=== PATIENT | male | born 1965 | race American Indian/Alaskan Native ===

== ENCOUNTER 2017-05-31 10:15 | Emergency (ER) | payer OTHER ==
[2017-05-31] MEDS: CHLORDIAZEPOXIDE 25 MG CAP PO (11:09)
[2017-05-31] MEDS: LORAZEPAM 2 MG INJ IV (11:09)
[2017-05-31] MEDS: SOD CHLORIDE 0.9% 1,000 ML IV (11:57)
[2017-05-31] MEDS: THIAMINE 100 MG TAB PO (11:58)
[2017-05-31] MEDS: FOLIC ACID 1 MG TAB PO (11:58)
== END 2017-05-31 12:51 | disposition home or self-care (01) ==
LOC: E/R 10:15
DX: F10.230 Alcohol dependence with withdrawal, uncomplicated (principal); I10 Essential (primary) hypertension; F17.210 Nicotine dependence, cigarettes, uncomplicated; R40.2142 Coma scale, eyes open, spontaneous, at arrival to emergency department; R40.2252 Coma scale, best verbal response, oriented, at arrival to emergency department; R40.2362 Coma scale, best motor response, obeys commands, at arrival to emergency department
CPT/HCPCS: 96374; 99284-25

== ENCOUNTER 2017-07-07 17:35 | Emergency (ER) | payer SELFPAY, OTHER | END 2017-07-07 22:13 | disposition left against medical advice (07) | LOC: E/R 17:35 | DX: Z53.21 Procedure and treatment not carried out due to patient leaving prior to being seen by health care provider (principal) ==

== ENCOUNTER 2017-08-10 15:51 | Emergency (ER) | payer OTHER ==
[2017-08-10 18:42] LABS: ADD MAN DIFF? NO
[2017-08-10] MEDS: SOD CHLORIDE 0.9% 1,000 ML IV ×2 (18:43→21:20)
[2017-08-10 18:46] LABS: BASOPHIL # 0.1 10^3/ul (0.0-0.1); BASOPHILS % 1.4 % (0.0-2.0); EOSINOPHILS # 0.1 10^3/ul (0.0-0.5); EOSINOPHILS % 3.3 % (0.0-7.0); HEMATOCRIT 36.1 % (42.0-52.0); HEMOGLOBIN 12.4 g/dl (14.0-18.0); LYMPHOCYTES % 48.4 % (15.0-51.0); MEAN CORPUSCULAR HEMOGLOBIN 33.7 pg (29.0-33.0); MEAN CORPUSCULAR HGB CONC 34.3 g/dl (32.0-37.0); MEAN CORPUSCULAR VOLUME 98.1 fl (82.0-101.0); MEAN PLATELET VOLUME 8.9 fl (7.4-10.4); MONOCYTE # 0.3 10^3/ul (0.3-0.9); MONOCYTES % 8.1 % (0.0-11.0); NEUTROPHIL # 1.6 10^3/ul (1.6-7.5); NEUTROPHILS % 38.6 % (39.0-77.0); PLATELET COUNT 114 10^3/UL (140-415); RED BLOOD COUNT 3.68 10^6/ul (4.70-6.10); RED CELL DISTRIBUTION WIDTH 13.8 % (11.5-14.5)
[2017-08-10 18:46] LABS: WHITE BLOOD COUNT 4.2 10^3/ul (4.8-10.8)
[2017-08-10 19:05] LABS: ANION GAP 16 (8-16); BLOOD UREA NITROGEN 6 mg/dl (7-20); CALCIUM 8.7 mg/dl (8.4-10.2); CARBON DIOXIDE 30 mmol/L (21-31); CHLORIDE 100 mmol/L (97-110); CREATININE 0.68 mg/dl (0.61-1.24); GLUCOSE 134 mg/dl (70-220); POTASSIUM 3.4 mmol/L (3.5-5.1); SODIUM 143 mmol/L (135-144)
[2017-08-10 19:11] LABS: AMPHETAMINE/METHAMPHETAMINE Negative (NEGATIVE); BARBITURATES Negative (NEGATIVE); BENZODIAZEPINES Negative (NEGATIVE); CANNABINOIDS Negative (NEGATIVE); COCAINE Negative (NEGATIVE); OPIATES Negative (NEGATIVE)
[2017-08-10 19:14] LABS: INR 0.92; PROTIME 12.4 Sec (11.9-14.9)
[2017-08-10 19:22] LABS: TROPONIN-I < 0.012 ng/ml (0.00-0.12)
[2017-08-10] MEDS: ONDANSETRON 4 MG INJ IV (21:20)
[2017-08-10] MEDS: LORAZEPAM 1 MG TAB PO (21:20)
== END 2017-08-11 01:30 | disposition short-term general hospital (02) ==
LOC: E/R 08-11 01:30
DX: H33.002 Unspecified retinal detachment with retinal break, left eye (principal); D64.9 Anemia, unspecified; D69.6 Thrombocytopenia, unspecified; E87.6 Hypokalemia; H43.12 Vitreous hemorrhage, left eye; S09.90XA Unspecified injury of head, initial encounter; I10 Essential (primary) hypertension; F17.210 Nicotine dependence, cigarettes, uncomplicated; R51 Headache; W18.39XA Other fall on same level, initial encounter; Y92.9 Unspecified place or not applicable
CPT/HCPCS: 36415; 70450; 71045; 76536; 80048; 80306; 80307; 82962; 84484; 85025; 85610; 93005; 96374; 99285-25

== ENCOUNTER 2017-08-13 15:31 | Emergency (ER) | payer OTHER | END 2017-08-13 18:40 | disposition left against medical advice (07) | LOC: FTE 15:31 → E/R 18:40 | DX: S69.91XA Unspecified injury of right wrist, hand and finger(s), initial encounter (principal); I10 Essential (primary) hypertension; Y08.89XA Assault by other specified means, initial encounter; Z87.891 Personal history of nicotine dependence | CPT/HCPCS: 73090; 73090-RT; 73110-RT; 73130-RT; 99283-25 ==

== ENCOUNTER 2017-08-14 03:43 | Emergency (ER) | payer OTHER ==
[2017-08-14 06:32] LABS: ADD MAN DIFF? NO
[2017-08-14 06:39] LABS: BASOPHIL # 0.1 10^3/ul (0.0-0.1); BASOPHILS % 1.1 % (0.0-2.0); EOSINOPHILS # 0.3 10^3/ul (0.0-0.5); EOSINOPHILS % 5.4 % (0.0-7.0); HEMATOCRIT 36.5 % (42.0-52.0); HEMOGLOBIN 12.5 g/dl (14.0-18.0); LYMPHOCYTES # 1.8 10^3/ul (0.8-2.9); LYMPHOCYTES % 37.9 % (15.0-51.0); MEAN CORPUSCULAR HEMOGLOBIN 34.2 pg (29.0-33.0); MEAN CORPUSCULAR HGB CONC 34.2 g/dl (32.0-37.0); MEAN CORPUSCULAR VOLUME 99.7 fl (82.0-101.0); MEAN PLATELET VOLUME 9.7 fl (7.4-10.4); MONOCYTE # 0.4 10^3/ul (0.3-0.9); MONOCYTES % 9.4 % (0.0-11.0); NEUTROPHIL # 2.2 10^3/ul (1.6-7.5); PLATELET COUNT 109 10^3/UL (140-415); RED BLOOD COUNT 3.66 10^6/ul (4.70-6.10); RED CELL DISTRIBUTION WIDTH 13.7 % (11.5-14.5)
[2017-08-14 06:39] LABS: WHITE BLOOD COUNT 4.7 10^3/ul (4.8-10.8)
[2017-08-14 06:56] LABS: ALANINE AMINOTRANSFERASE 68 IU/L (13-69); ALBUMIN 4.3 g/dl (3.3-4.9); ALBUMIN/GLOBULIN RATIO 1.48; ALKALINE PHOSPHATASE 60 IU/L (42-121); ANION GAP 19 (8-16); ASPARTATE AMINO TRANSFERASE 101 IU/L (15-46); BILIRUBIN,INDIRECT 0.3 mg/dl (0-1.1); BILIRUBIN,TOTAL 0.3 mg/dl (0.2-1.3); BLOOD UREA NITROGEN 7 mg/dl (7-20); CALCIUM 8.2 mg/dl (8.4-10.2); CARBON DIOXIDE 24 mmol/L (21-31); CHLORIDE 107 mmol/L (97-110); CREATININE 0.62 mg/dl (0.61-1.24); GLUCOSE 81 mg/dl (70-220); POTASSIUM 3.8 mmol/L (3.5-5.1); SODIUM 146 mmol/L (135-144); TOTAL PROTEIN 7.2 g/dl (6.1-8.1)
[2017-08-14 06:59] LABS: ACETAMINOPHEN < 10.0 ug/ml (10.0-30.0); SALICYLATE < 1.0 mg/dl (5.0-30.0)
[2017-08-14] MEDS: DIPHTH/TET/ACEL PERTUSS (ADULT) 0.5 ML VIAL IM* (08:19)
== END 2017-08-14 08:58 | disposition home or self-care (01) ==
LOC: E/R 03:43
DX: S60.511A Abrasion of right hand, initial encounter (principal); F10.920 Alcohol use, unspecified with intoxication, uncomplicated; I10 Essential (primary) hypertension; X99.1XXA Assault by knife, initial encounter; Z23 Encounter for immunization; Z87.891 Personal history of nicotine dependence
CPT/HCPCS: 73130; 73130-RT; 80053; 80306; 85025; 90471; 90715; 99284-25

== ENCOUNTER 2017-09-01 15:45 | Emergency (ER) | payer OTHER ==
[2017-09-01] MEDS: LORAZEPAM 1 MG TAB PO (17:02)
[2017-09-01] MEDS: LIDOCAINE/MYLANTA 40 ML BTL PO (17:02)
[2017-09-01] MEDS: ACETAMINOPHEN 325 MG TAB PO (17:29)
[2017-09-01 18:18] LABS: ADD MAN DIFF? NO
[2017-09-01 18:20] LABS: WHITE BLOOD COUNT 5.6 10^3/ul (4.8-10.8)
[2017-09-01 18:20] LABS: BASOPHILS % 0.7 % (0.0-2.0); EOSINOPHILS # 0.2 10^3/ul (0.0-0.5); EOSINOPHILS % 2.7 % (0.0-7.0); HEMATOCRIT 33.3 % (42.0-52.0); HEMOGLOBIN 11.2 g/dl (14.0-18.0); MEAN CORPUSCULAR HEMOGLOBIN 33.9 pg (29.0-33.0); MEAN CORPUSCULAR HGB CONC 33.6 g/dl (32.0-37.0); MEAN CORPUSCULAR VOLUME 100.9 fl (82.0-101.0); MEAN PLATELET VOLUME 9.6 fl (7.4-10.4); MONOCYTE # 0.7 10^3/ul (0.3-0.9); MONOCYTES % 12.1 % (0.0-11.0); NEUTROPHIL # 2.7 10^3/ul (1.6-7.5); NEUTROPHILS % 48.3 % (39.0-77.0); PLATELET COUNT 119 10^3/UL (140-415); RED CELL DISTRIBUTION WIDTH 13.1 % (11.5-14.5)
[2017-09-01 18:43] LABS: ANION GAP 21 (8-16); BLOOD UREA NITROGEN 11 mg/dl (7-20); CALCIUM 8.4 mg/dl (8.4-10.2); CARBON DIOXIDE 26 mmol/L (21-31); CHLORIDE 102 mmol/L (97-110); CREATININE 0.69 mg/dl (0.61-1.24); GLUCOSE 98 mg/dl (70-220); POTASSIUM 3.8 mmol/L (3.5-5.1); SODIUM 145 mmol/L (135-144)
== END 2017-09-01 19:08 | disposition home or self-care (01) ==
LOC: E/R 15:45 → FTE 19:08
DX: R07.89 Other chest pain (principal); Z87.891 Personal history of nicotine dependence
CPT/HCPCS: 36415; 71046; 80048; 85025; 93005; 99285-25

== ENCOUNTER 2017-09-08 13:30 | Emergency (ER) | payer OTHER ==
[2017-09-08] MEDS: LORAZEPAM 2 MG INJ IV (16:45)
[2017-09-08] MEDS: SOD CHLORIDE 0.9% 1,000 ML IV (16:45)
[2017-09-08] MEDS: MAGNESIUM SULFATE 2 GM, MULTIVITAMINS 10 ML, THIAMINE 100 MG, FOLIC ACID 1 MG in SOD CH... IV (16:46)
[2017-09-08 16:59] LABS: ADD MAN DIFF? NO
[2017-09-08 17:03] LABS: WHITE BLOOD COUNT 4.5 10^3/ul (4.8-10.8)
[2017-09-08 17:03] LABS: BASOPHIL # 0.1 10^3/ul (0.0-0.1); BASOPHILS % 1.1 % (0.0-2.0); EOSINOPHILS # 0.2 10^3/ul (0.0-0.5); EOSINOPHILS % 3.5 % (0.0-7.0); HEMATOCRIT 32.8 % (42.0-52.0); HEMOGLOBIN 11.2 g/dl (14.0-18.0); LYMPHOCYTES # 1.7 10^3/ul (0.8-2.9); LYMPHOCYTES % 36.9 % (15.0-51.0); MEAN CORPUSCULAR HEMOGLOBIN 34.7 pg (29.0-33.0); MEAN CORPUSCULAR HGB CONC 34.1 g/dl (32.0-37.0); MEAN CORPUSCULAR VOLUME 101.5 fl (82.0-101.0); MONOCYTE # 0.4 10^3/ul (0.3-0.9); MONOCYTES % 9.5 % (0.0-11.0); NEUTROPHIL # 2.2 10^3/ul (1.6-7.5); NEUTROPHILS % 48.6 % (39.0-77.0); PLATELET COUNT 145 10^3/UL (140-415); RED BLOOD COUNT 3.23 10^6/ul (4.70-6.10); RED CELL DISTRIBUTION WIDTH 13.4 % (11.5-14.5)
[2017-09-08 17:08] LABS: ADD UMIC NO; UR ASCORBIC ACID NEGATIVE (NEGATIVE); UR BILIRUBIN (Dip) NEGATIVE (NEGATIVE); UR BLOOD (Dip) NEGATIVE (NEGATIVE); UR CLARITY CLEAR (CLEAR); UR COLOR YELLOW (YELLOW); UR GLUCOSE (Dip) NEGATIVE (NEGATIVE); UR KETONES (Dip) NEGATIVE (NEGATIVE); UR LEUKOCYTE ESTERASE (Dip) NEGATIVE Leu/ul (NEGATIVE); UR NITRITE (Dip) NEGATIVE (NEGATIVE); UR SPECIFIC GRAVITY (Dip) 1.011 (1.003-1.030); UR TOTAL PROTEIN (Dip) NEGATIVE (NEGATIVE); UR UROBILINOGEN (Dip) NEGATIVE (NEGATIVE)
[2017-09-08 17:22] LABS: ALANINE AMINOTRANSFERASE 61 IU/L (13-69); ALBUMIN 4.1 g/dl (3.3-4.9); ALBUMIN/GLOBULIN RATIO 1.24; ALKALINE PHOSPHATASE 64 IU/L (42-121); ANION GAP 18 (8-16); ASPARTATE AMINO TRANSFERASE 94 IU/L (15-46); BILIRUBIN,INDIRECT 0.2 mg/dl (0-1.1); BILIRUBIN,TOTAL 0.2 mg/dl (0.2-1.3); BLOOD UREA NITROGEN 11 mg/dl (7-20); CALCIUM 8.4 mg/dl (8.4-10.2); CARBON DIOXIDE 29 mmol/L (21-31); CHLORIDE 105 mmol/L (97-110); CREATININE 0.91 mg/dl (0.61-1.24); GLUCOSE 96 mg/dl (70-220); LIPASE 246 U/L (23-300); POTASSIUM 3.8 mmol/L (3.5-5.1); SODIUM 148 mmol/L (135-144); TOTAL PROTEIN 7.4 g/dl (6.1-8.1)
== END 2017-09-08 19:25 | disposition home or self-care (01) ==
LOC: FTE 13:30
DX: F10.220 Alcohol dependence with intoxication, uncomplicated (principal); I10 Essential (primary) hypertension; F17.210 Nicotine dependence, cigarettes, uncomplicated
CPT/HCPCS: 36415; 71045; 74176; 80053; 80307; 81003; 83690; 85025; 96374; 96375; 99285-25

== ENCOUNTER → 2017-09-24 | Emergency (ER) | payer SELFPAY, OTHER | END | disposition home or self-care (01) | LOC: E/R 13:51 | DX: F10.129 Alcohol abuse with intoxication, unspecified (principal); I10 Essential (primary) hypertension | CPT/HCPCS: 99283 ==

== ENCOUNTER 2017-09-27 15:02 | Emergency (ER) | payer OTHER ==
[2017-09-27 16:14] LABS: ADD MAN DIFF? NO
[2017-09-27] MEDS: KETOROLAC 30 MG INJ IV (16:15)
[2017-09-27] MEDS: SOD CHLORIDE 0.9% 1,000 ML IV (16:15)
[2017-09-27] MEDS: LORAZEPAM 2 MG INJ IV (16:15)
[2017-09-27 16:16] LABS: BASOPHIL # 0.1 10^3/ul (0.0-0.1); BASOPHILS % 1.4 % (0.0-2.0); EOSINOPHILS % 0.7 % (0.0-7.0); HEMATOCRIT 35.4 % (42.0-52.0); HEMOGLOBIN 12.2 g/dl (14.0-18.0); LYMPHOCYTES # 1.4 10^3/ul (0.8-2.9); LYMPHOCYTES % 24.1 % (15.0-51.0); MEAN CORPUSCULAR HEMOGLOBIN 33.7 pg (29.0-33.0); MEAN CORPUSCULAR HGB CONC 34.5 g/dl (32.0-37.0); MEAN CORPUSCULAR VOLUME 97.8 fl (82.0-101.0); MEAN PLATELET VOLUME 8.6 fl (7.4-10.4); MONOCYTE # 0.7 10^3/ul (0.3-0.9); MONOCYTES % 11.6 % (0.0-11.0); NEUTROPHIL # 3.6 10^3/ul (1.6-7.5); PLATELET COUNT 267 10^3/UL (140-415); RED BLOOD COUNT 3.62 10^6/ul (4.70-6.10); RED CELL DISTRIBUTION WIDTH 11.9 % (11.5-14.5)
[2017-09-27 16:16] LABS: WHITE BLOOD COUNT 5.9 10^3/ul (4.8-10.8)
[2017-09-27 16:23] LABS: ALANINE AMINOTRANSFERASE 55 IU/L (13-69); ALBUMIN/GLOBULIN RATIO 1.21; ALKALINE PHOSPHATASE 67 IU/L (42-121); ANION GAP 17 (8-16); ASPARTATE AMINO TRANSFERASE 40 IU/L (15-46); BILIRUBIN,INDIRECT 0.2 mg/dl (0-1.1); BILIRUBIN,TOTAL 0.2 mg/dl (0.2-1.3); BLOOD UREA NITROGEN 7 mg/dl (7-20); CALCIUM 8.4 mg/dl (8.4-10.2); CARBON DIOXIDE 26 mmol/L (21-31); CHLORIDE 100 mmol/L (97-110); CREATININE 0.68 mg/dl (0.61-1.24); GLUCOSE 152 mg/dl (70-220); POTASSIUM 3.3 mmol/L (3.5-5.1); SODIUM 140 mmol/L (135-144); TOTAL PROTEIN 7.3 g/dl (6.1-8.1)
[2017-09-27] MEDS: THIAMINE 100 MG TAB PO (16:29)
== END 2017-09-27 20:58 | disposition home or self-care (01) ==
LOC: E/R 15:02
DX: F10.230 Alcohol dependence with withdrawal, uncomplicated (principal); M54.9 Dorsalgia, unspecified; G89.29 Other chronic pain; I10 Essential (primary) hypertension; F17.210 Nicotine dependence, cigarettes, uncomplicated
CPT/HCPCS: 36415; 71045; 80053; 80307; 85025; 93005; 96360; 96361; 99285-25

== ENCOUNTER 2017-09-30 10:44 | Emergency (ER) | payer OTHER | END 2017-09-30 13:30 | disposition home or self-care (01) | LOC: FTE 10:44 | DX: F10.129 Alcohol abuse with intoxication, unspecified (principal); I10 Essential (primary) hypertension | CPT/HCPCS: 99282; Z7502 ==

== ENCOUNTER 2017-10-02 14:42 | Emergency (ER) | payer OTHER ==
[2017-10-02 19:09] LABS: ADD MAN DIFF? NO
[2017-10-02 19:14] LABS: BASOPHILS % 0.3 % (0.0-2.0); EOSINOPHILS % 0.4 % (0.0-7.0); HEMATOCRIT 36.5 % (42.0-52.0); HEMOGLOBIN 12.9 g/dl (14.0-18.0); LYMPHOCYTES # 2.7 10^3/ul (0.8-2.9); LYMPHOCYTES % 25.1 % (15.0-51.0); MEAN CORPUSCULAR HGB CONC 35.3 g/dl (32.0-37.0); MEAN CORPUSCULAR VOLUME 96.3 fl (82.0-101.0); MEAN PLATELET VOLUME 8.9 fl (7.4-10.4); MONOCYTE # 0.5 10^3/ul (0.3-0.9); MONOCYTES % 4.7 % (0.0-11.0); NEUTROPHIL # 7.5 10^3/ul (1.6-7.5); NEUTROPHILS % 69.2 % (39.0-77.0); PLATELET COUNT 192 10^3/UL (140-415); RED BLOOD COUNT 3.79 10^6/ul (4.70-6.10); RED CELL DISTRIBUTION WIDTH 11.6 % (11.5-14.5)
[2017-10-02 19:14] LABS: WHITE BLOOD COUNT 10.8 10^3/ul (4.8-10.8)
[2017-10-02 19:23] LABS: ALANINE AMINOTRANSFERASE 25 IU/L (13-69); ALBUMIN 4.1 g/dl (3.3-4.9); ALBUMIN/GLOBULIN RATIO 1.13; ALKALINE PHOSPHATASE 71 IU/L (42-121); ANION GAP 17 (8-16); ASPARTATE AMINO TRANSFERASE 31 IU/L (15-46); BILIRUBIN,INDIRECT 0.3 mg/dl (0-1.1); BILIRUBIN,TOTAL 0.3 mg/dl (0.2-1.3); BLOOD UREA NITROGEN 5 mg/dl (7-20); CALCIUM 8.3 mg/dl (8.4-10.2); CARBON DIOXIDE 25 mmol/L (21-31); CHLORIDE 105 mmol/L (97-110); CREATININE 0.52 mg/dl (0.61-1.24); GLUCOSE 106 mg/dl (70-220); POTASSIUM 4.3 mmol/L (3.5-5.1); SODIUM 143 mmol/L (135-144); TOTAL PROTEIN 7.7 g/dl (6.1-8.1)
[2017-10-02 19:34] LABS: INR 1.02; PROTIME 13.5 Sec (11.9-14.9); PT RATIO 1.1
[2017-10-02 19:35] LABS: PARTIAL THROMBOPLASTIN TIME 29.8 Sec (25.0-35.0)
[2017-10-02] MEDS: SOD CHLORIDE 0.9% 1,000 ML IV (19:51)
[2017-10-02 20:25] LABS: ADD UMIC YES; UR ASCORBIC ACID NEGATIVE (NEGATIVE); UR BILIRUBIN (Dip) NEGATIVE (NEGATIVE); UR BLOOD (Dip) 1+ mg/dL (NEGATIVE); UR CLARITY CLEAR (CLEAR); UR COLOR STRAW (YELLOW); UR GLUCOSE (Dip) NEGATIVE (NEGATIVE); UR KETONES (Dip) NEGATIVE (NEGATIVE); UR LEUKOCYTE ESTERASE (Dip) NEGATIVE Leu/ul (NEGATIVE); UR NITRITE (Dip) NEGATIVE (NEGATIVE); UR RBC 0 /HPF (0-5); UR SPECIFIC GRAVITY (Dip) 1.004 (1.003-1.030); UR TOTAL PROTEIN (Dip) NEGATIVE (NEGATIVE); UR UROBILINOGEN (Dip) NEGATIVE (NEGATIVE); UR WBC 0 /HPF (0-5)
[2017-10-02] MEDS: ONDANSETRON 4 MG INJ IV (20:39)
[2017-10-02] MEDS: morphine 4 MG/ML VIAL IV (20:40)
[2017-10-02 20:51] LABS: AMPHETAMINE/METHAMPHETAMINE Negative (NEGATIVE); BARBITURATES Negative (NEGATIVE); BENZODIAZEPINES Negative (NEGATIVE); CANNABINOIDS Negative (NEGATIVE); COCAINE Negative (NEGATIVE); OPIATES Negative (NEGATIVE)
[2017-10-02] MEDS: AZITHROMYCIN 250 MG TAB PO (22:43)
== END 2017-10-02 22:55 | disposition home or self-care (01) ==
LOC: E/R 14:42
DX: F10.920 Alcohol use, unspecified with intoxication, uncomplicated (principal); M54.5 Low back pain; G89.29 Other chronic pain; J18.9 Pneumonia, unspecified organism; I10 Essential (primary) hypertension; F17.210 Nicotine dependence, cigarettes, uncomplicated; R07.9 Chest pain, unspecified
CPT/HCPCS: 71045; 80053; 80307; 81001; 85025; 85610; 85730; 96374; 96375; 99284-25

== ENCOUNTER 2017-10-05 09:06 | Emergency (ER) | payer OTHER ==
[2017-10-05 10:20] LABS: ADD MAN DIFF? NO
[2017-10-05 10:22] LABS: BASOPHILS % 0.6 % (0.0-2.0); EOSINOPHILS % 0.5 % (0.0-7.0); HEMATOCRIT 41.5 % (42.0-52.0); HEMOGLOBIN 14.5 g/dl (14.0-18.0); LYMPHOCYTES # 2.5 10^3/ul (0.8-2.9); LYMPHOCYTES % 39.4 % (15.0-51.0); MEAN CORPUSCULAR HEMOGLOBIN 33.4 pg (29.0-33.0); MEAN CORPUSCULAR HGB CONC 34.9 g/dl (32.0-37.0); MEAN CORPUSCULAR VOLUME 95.6 fl (82.0-101.0); MEAN PLATELET VOLUME 9.9 fl (7.4-10.4); MONOCYTE # 0.4 10^3/ul (0.3-0.9); MONOCYTES % 5.7 % (0.0-11.0); NEUTROPHIL # 3.5 10^3/ul (1.6-7.5); NEUTROPHILS % 53.5 % (39.0-77.0); PLATELET COUNT 201 10^3/UL (140-415); POSITIVE DIFF @See below; RED BLOOD COUNT 4.34 10^6/ul (4.70-6.10); RED CELL DISTRIBUTION WIDTH 11.5 % (11.5-14.5)
[2017-10-05 10:22] LABS: WHITE BLOOD COUNT 6.5 10^3/ul (4.8-10.8)
[2017-10-05] MEDS: ALBUTEROL 0.5% (NEB) 2.5 MG/0.5 ML AMP INH (10:47)
[2017-10-05] MEDS: IPRATROPIUM (NEB) 0.5 MG/2.5 ML AMP INH (10:47)
[2017-10-05 10:50] LABS: INR 0.95; PROTIME 12.8 Sec (11.9-14.9)
[2017-10-05 10:51] LABS: PARTIAL THROMBOPLASTIN TIME 25.2 Sec (25.0-35.0)
[2017-10-05 10:52] LABS: ALANINE AMINOTRANSFERASE 30 IU/L (13-69); ALBUMIN 4.6 g/dl (3.3-4.9); ALBUMIN/GLOBULIN RATIO 1.04; ALKALINE PHOSPHATASE 84 IU/L (42-121); ANION GAP 19 (8-16); ASPARTATE AMINO TRANSFERASE 45 IU/L (15-46); BILIRUBIN,INDIRECT 0.3 mg/dl (0-1.1); BILIRUBIN,TOTAL 0.3 mg/dl (0.2-1.3); BLOOD UREA NITROGEN 5 mg/dl (7-20); CALCIUM 9.3 mg/dl (8.4-10.2); CARBON DIOXIDE 26 mmol/L (21-31); CHLORIDE 107 mmol/L (97-110); CREATININE 0.56 mg/dl (0.61-1.24); GLUCOSE 83 mg/dl (70-220); LIPASE 234 U/L (23-300); POTASSIUM 3.5 mmol/L (3.5-5.1); SODIUM 148 mmol/L (135-144)
[2017-10-05] MEDS: SOD CHLORIDE 0.9% 1,000 ML IV (11:07)
== END 2017-10-05 12:16 | disposition home or self-care (01) ==
LOC: E/R 09:06
DX: F10.920 Alcohol use, unspecified with intoxication, uncomplicated (principal); J40 Bronchitis, not specified as acute or chronic; I10 Essential (primary) hypertension; R53.1 Weakness; F17.210 Nicotine dependence, cigarettes, uncomplicated; R51 Headache; R40.2142 Coma scale, eyes open, spontaneous, at arrival to emergency department; R40.2252 Coma scale, best verbal response, oriented, at arrival to emergency department; R40.2362 Coma scale, best motor response, obeys commands, at arrival to emergency department
CPT/HCPCS: 36415; 70450; 71045; 80053; 80307; 83690; 85025; 85610; 85730; 94644; 99285-25

== ENCOUNTER 2017-10-15 15:15 | Emergency (ER) | payer SELFPAY, OTHER | END 2017-10-15 18:26 | disposition left against medical advice (07) | LOC: FTE 15:15 | DX: Z53.21 Procedure and treatment not carried out due to patient leaving prior to being seen by health care provider (principal) ==

== ENCOUNTER 2017-10-18 09:16 | Emergency (ER) | payer OTHER ==
[2017-10-18] MEDS: ACETAMINOPHEN 325 MG TAB PO (10:47)
[2017-10-18] MEDS: LORAZEPAM 1 MG TAB PO (10:47)
[2017-10-18] MEDS: ONDANSETRON (ODT) 4 MG TAB ODT (10:47)
[2017-10-18] MEDS: KETOROLAC 30 MG INJ IM (12:37)
== END 2017-10-18 12:42 | disposition home or self-care (01) ==
LOC: FTE 09:16
DX: S01.112A Laceration without foreign body of left eyelid and periocular area, initial encounter (principal); S63.502A Unspecified sprain of left wrist, initial encounter; I10 Essential (primary) hypertension; F17.210 Nicotine dependence, cigarettes, uncomplicated; R56.9 Unspecified convulsions; W18.39XA Other fall on same level, initial encounter; Y92.9 Unspecified place or not applicable
CPT/HCPCS: 12011; 70450; 72125; 73110-LT; 73562; 96372; 99285-25

== ENCOUNTER 2017-10-19 20:22 | Emergency (ER) | payer OTHER ==
[2017-10-19] MEDS: IBUPROFEN 600 MG TAB PO (21:38)
[2017-10-19] MEDS: HYDROCODONE/APAP (5/325) TAB PO (21:39)
== END 2017-10-19 23:55 | disposition home or self-care (01) ==
LOC: FTE 20:22
DX: S00.212A Abrasion of left eyelid and periocular area, initial encounter (principal); I10 Essential (primary) hypertension; F17.210 Nicotine dependence, cigarettes, uncomplicated; W19.XXXA Unspecified fall, initial encounter; Y92.9 Unspecified place or not applicable; Z76.0 Encounter for issue of repeat prescription
CPT/HCPCS: 72100; 99283-25

== ENCOUNTER 2017-11-05 19:50 | Emergency (ER) | payer OTHER ==
[2017-11-05] MEDS: traMADol 50 MG TAB PO (23:02)
== END 2017-11-06 00:49 | disposition home or self-care (01) ==
LOC: FTE 11-06 00:49
DX: S06.0X0A Concussion without loss of consciousness, initial encounter (principal); S40.012A Contusion of left shoulder, initial encounter; S20.20XA Contusion of thorax, unspecified, initial encounter; S50.02XA Contusion of left elbow, initial encounter; M62.838 Other muscle spasm; I10 Essential (primary) hypertension; F17.210 Nicotine dependence, cigarettes, uncomplicated; V03.10XA Pedestrian on foot injured in collision with car, pick-up truck or van in traffic accident, initial encounter
CPT/HCPCS: 70450; 71045; 72040; 73030; 73080-LT; 93005; 99285-25

== ENCOUNTER 2017-11-13 15:08 | Emergency (ER) | payer OTHER ==
[2017-11-13 15:42] LABS: ADD MAN DIFF? NO
[2017-11-13 15:44] LABS: WHITE BLOOD COUNT 5.2 10^3/ul (4.8-10.8)
[2017-11-13 15:44] LABS: BASOPHILS % 0.8 % (0.0-2.0); EOSINOPHILS # 0.2 10^3/ul (0.0-0.5); EOSINOPHILS % 2.9 % (0.0-7.0); HEMOGLOBIN 12.7 g/dl (14.0-18.0); IMMATURE GRANS #M 0 10^3/ul; IMMATURE GRANS % (M) 0 %; LYMPHOCYTES # 2.3 10^3/ul (0.8-2.9); LYMPHOCYTES % 44.6 % (15.0-51.0); MEAN CORPUSCULAR HEMOGLOBIN 33.3 pg (29.0-33.0); MEAN CORPUSCULAR HGB CONC 33.4 g/dl (32.0-37.0); MEAN CORPUSCULAR VOLUME 99.7 fl (82.0-101.0); MONOCYTE # 0.5 10^3/ul (0.3-0.9); MONOCYTES % 9.8 % (0.0-11.0); NEUTROPHIL # 2.2 10^3/ul (1.6-7.5); NEUTROPHILS % 41.9 % (39.0-77.0); PLATELET COUNT 197 10^3/UL (140-415); POSITIVE DIFF @See below; RED BLOOD COUNT 3.81 10^6/ul (4.70-6.10); RED CELL DISTRIBUTION WIDTH 12.7 % (11.5-14.5)
[2017-11-13] MEDS: ASPIRIN 81 MG TAB PO (15:57)
[2017-11-13 16:02] LABS: ANION GAP 16 (8-16); BLOOD UREA NITROGEN 8 mg/dl (7-20); CALCIUM 8.7 mg/dl (8.4-10.2); CARBON DIOXIDE 24 mmol/L (21-31); CHLORIDE 107 mmol/L (97-110); CREATININE 0.74 mg/dl (0.61-1.24); GLUCOSE 95 mg/dl (70-220); POTASSIUM 3.4 mmol/L (3.5-5.1); SODIUM 144 mmol/L (135-144)
[2017-11-13 16:13] LABS: TROPONIN-I < 0.010 ng/ml (0.000-0.120)
== END 2017-11-13 19:17 | disposition home or self-care (01) ==
LOC: E/R 15:08
DX: F10.920 Alcohol use, unspecified with intoxication, uncomplicated (principal); I10 Essential (primary) hypertension; F17.210 Nicotine dependence, cigarettes, uncomplicated
CPT/HCPCS: 36415; 71045; 80048; 84484; 85025; 93005; 99285-25

== ENCOUNTER 2017-11-19 17:44 | Emergency (ER) | payer OTHER ==
[2017-11-19] MEDS: IBUPROFEN 800 MG TAB PO (18:35)
== END 2017-11-19 19:12 | disposition home or self-care (01) ==
LOC: E/R 17:44
DX: R07.9 Chest pain, unspecified (principal); F10.920 Alcohol use, unspecified with intoxication, uncomplicated; I10 Essential (primary) hypertension; F17.210 Nicotine dependence, cigarettes, uncomplicated
CPT/HCPCS: 82962; 93005; 99283-25

== ENCOUNTER 2017-11-23 22:44 | Emergency (ER) | payer OTHER ==
[2017-11-24] MEDS: AZITHROMYCIN 250 MG TAB PO (02:45)
[2017-11-24] MEDS: GENTAMICIN 80 MG INJ IM (02:49)
== END 2017-11-24 02:56 | disposition home or self-care (01) ==
LOC: FTE 22:44
DX: N34.2 Other urethritis (principal); I10 Essential (primary) hypertension; F17.210 Nicotine dependence, cigarettes, uncomplicated
CPT/HCPCS: 87591; 96372; 99284-25

== ENCOUNTER 2017-11-28 17:44 | Emergency (ER) | payer SELFPAY, OTHER | END 2017-11-28 19:58 | disposition left against medical advice (07) | LOC: FTE 19:58 | DX: Z53.21 Procedure and treatment not carried out due to patient leaving prior to being seen by health care provider (principal) ==

== ENCOUNTER 2017-12-01 12:53 | Emergency (ER) | payer OTHER | END 2017-12-01 15:41 | disposition home or self-care (01) | LOC: E/R 12:53 | DX: F10.10 Alcohol abuse, uncomplicated (principal); I10 Essential (primary) hypertension; Z87.891 Personal history of nicotine dependence | CPT/HCPCS: 99283; Z7502 ==

== ENCOUNTER 2017-12-01 20:36 | Emergency (ER) | payer OTHER ==
[2017-12-02] MEDS: LORAZEPAM 1 MG TAB PO (03:43)
== END 2017-12-02 06:48 | disposition home or self-care (01) ==
LOC: E/R 20:36
DX: F10.230 Alcohol dependence with withdrawal, uncomplicated (principal); I10 Essential (primary) hypertension; F17.210 Nicotine dependence, cigarettes, uncomplicated
CPT/HCPCS: 99283; Z7610

== ENCOUNTER 2017-12-07 23:34 | Emergency (ER) | payer OTHER ==
[2017-12-08] MEDS: CHLORDIAZEPOXIDE 25 MG CAP PO (00:06)
[2017-12-08] MEDS: LEVETIRACETAM 500 MG TAB PO (00:50)
== END 2017-12-08 04:41 | disposition home or self-care (01) ==
LOC: E/R 23:34
DX: R00.2 Palpitations (principal); R56.9 Unspecified convulsions; F10.20 Alcohol dependence, uncomplicated; I10 Essential (primary) hypertension; F17.210 Nicotine dependence, cigarettes, uncomplicated
CPT/HCPCS: 93005; 99283

== ENCOUNTER 2017-12-15 02:12 | Inpatient (IN) | payer OTHER ==
[2017-12-15] MEDS ORDERED: NACL 0.9% 3 ML SYG IV (03:30)
[2017-12-15] MEDS ORDERED: LORAZEPAM 2 MG INJ IV (03:30)
[2017-12-15] MEDS ORDERED: ALBUTEROL/IPRATROPIUM (NEB) 3 ML AMP HHN (03:30)
[2017-12-15] MEDS ORDERED: ONDANSETRON 4 MG INJ IV (03:30)
[2017-12-15] MEDS: ACETAMINOPHEN 325 MG TAB PO (03:53)
[2017-12-15] MEDS: SOD CHLORIDE 0.9% 1,000 ML IV ×2 (04:16→16:38)
[2017-12-15] MEDS: LORAZEPAM 2 MG INJ IV ×7 (04:17→23:35)
[2017-12-15 05:41] LABS: ADD MAN DIFF? NO
[2017-12-15 05:54] LABS: BASOPHILS % 0.6 % (0.0-2.0); EOSINOPHILS # 0.1 10^3/ul (0.0-0.5); EOSINOPHILS % 1.2 % (0.0-7.0); HEMATOCRIT 36.2 % (42.0-52.0); HEMOGLOBIN 12.2 g/dl (14.0-18.0); LYMPHOCYTES # 0.7 10^3/ul (0.8-2.9); LYMPHOCYTES % 14.3 % (15.0-51.0); MEAN CORPUSCULAR HEMOGLOBIN 33.2 pg (29.0-33.0); MEAN CORPUSCULAR HGB CONC 33.7 g/dl (32.0-37.0); MEAN CORPUSCULAR VOLUME 98.6 fl (82.0-101.0); MEAN PLATELET VOLUME 9.4 fl (7.4-10.4); MONOCYTE # 0.4 10^3/ul (0.3-0.9); MONOCYTES % 8.9 % (0.0-11.0); NEUTROPHIL # 3.6 10^3/ul (1.6-7.5); NEUTROPHILS % 74.8 % (39.0-77.0); POSITIVE DIFF @See below; RED BLOOD COUNT 3.67 10^6/ul (4.70-6.10); RED CELL DISTRIBUTION WIDTH 12.3 % (11.5-14.5)
[2017-12-15 05:54] LABS: WHITE BLOOD COUNT 4.8 10^3/ul (4.8-10.8)
[2017-12-15 05:56] LABS: PLATELET COUNT 138 10^3/UL (140-415)
[2017-12-15 06:07] LABS: ALANINE AMINOTRANSFERASE 33 IU/L (13-69); ALBUMIN 3.9 g/dl (3.3-4.9); ALBUMIN/GLOBULIN RATIO 1.39; ALKALINE PHOSPHATASE 43 IU/L (42-121); ANION GAP 9 (8-16); ASPARTATE AMINO TRANSFERASE 37 IU/L (15-46); BILIRUBIN,INDIRECT 0.7 mg/dl (0-1.1); BILIRUBIN,TOTAL 0.7 mg/dl (0.2-1.3); BLOOD UREA NITROGEN 10 mg/dl (7-20); CALCIUM 8.5 mg/dl (8.4-10.2); CARBON DIOXIDE 29 mmol/L (21-31); CHLORIDE 103 mmol/L (97-110); CREATININE 0.63 mg/dl (0.61-1.24); GLUCOSE 157 mg/dl (70-220); POTASSIUM 3.7 mmol/L (3.5-5.1); SODIUM 137 mmol/L (135-144); TOTAL PROTEIN 6.7 g/dl (6.1-8.1)
[2017-12-15 06:12] LABS: PHOSPHORUS 3.1 mg/dl (2.5-4.9)
[2017-12-15 07:22] LABS: ETHANOL < 10.0 mg/dl
[2017-12-15] MEDS: CHLORDIAZEPOXIDE 25 MG CAP PO ×3 (08:11→20:36)
[2017-12-15] MEDS: MULTIVITAMINS 10 ML, THIAMINE 100 MG, FOLIC ACID 1 MG in SOD CHLORIDE 0.9% 1,000 ML IVPB (08:11)
[2017-12-15] MEDS: HYDROCODONE/APAP (5/325) TAB PO (13:49)
[2017-12-15] MEDS: LISINOPRIL 10 MG TAB PO (15:00)
[2017-12-15] MEDS: AMLODIPINE 5 MG TAB PO (15:00)
[2017-12-15 16:23] LABS: AMPHETAMINE/METHAMPHETAMINE Negative (NEGATIVE)
[2017-12-15] MEDS: traMADol 50 MG TAB PO (16:42)
[2017-12-15 17:12] LABS: BARBITURATES NEGATIVE (NEGATIVE); BENZODIAZEPINES POSITIVE (NEGATIVE); CANNABINOIDS NEGATIVE (NEGATIVE); COCAINE NEGATIVE (NEGATIVE); OPIATES POSITIVE (NEGATIVE)
[2017-12-15] MEDS: METOPROLOL 25 MG TAB PO (20:37)
[2017-12-15] MEDS: LEVETIRACETAM 500 MG TAB PO (20:37)
[2017-12-15] MEDS: KETOROLAC 30 MG INJ IV (22:03)
[2017-12-16] MEDS: SOD CHLORIDE 0.9% 1,000 ML IV ×3 (01:05→11:28)
[2017-12-16] MEDS: LORAZEPAM 2 MG INJ IV ×3 (02:01→08:34)
[2017-12-16] MEDS: KETOROLAC 30 MG INJ IV (05:01)
[2017-12-16 05:54] LABS: ADD MAN DIFF? NO
[2017-12-16 05:59] LABS: WHITE BLOOD COUNT 3.9 10^3/ul (4.8-10.8)
[2017-12-16 05:59] LABS: BASOPHILS % 0.8 % (0.0-2.0); EOSINOPHILS # 0.1 10^3/ul (0.0-0.5); HEMATOCRIT 34.3 % (42.0-52.0); HEMOGLOBIN 11.6 g/dl (14.0-18.0); LYMPHOCYTES # 1.2 10^3/ul (0.8-2.9); LYMPHOCYTES % 29.9 % (15.0-51.0); MEAN CORPUSCULAR HEMOGLOBIN 32.2 pg (29.0-33.0); MEAN CORPUSCULAR HGB CONC 33.8 g/dl (32.0-37.0); MEAN CORPUSCULAR VOLUME 95.3 fl (82.0-101.0); MEAN PLATELET VOLUME 9.4 fl (7.4-10.4); MONOCYTE # 0.5 10^3/ul (0.3-0.9); MONOCYTES % 12.2 % (0.0-11.0); NEUTROPHIL # 2.1 10^3/ul (1.6-7.5); NEUTROPHILS % 53.8 % (39.0-77.0); PLATELET COUNT 148 10^3/UL (140-415); RED CELL DISTRIBUTION WIDTH 12.1 % (11.5-14.5)
[2017-12-16 06:59] LABS: ALANINE AMINOTRANSFERASE 34 IU/L (13-69); ALBUMIN 3.5 g/dl (3.3-4.9); ALBUMIN/GLOBULIN RATIO 1.12; ALKALINE PHOSPHATASE 45 IU/L (42-121); ANION GAP 11 (8-16); ASPARTATE AMINO TRANSFERASE 38 IU/L (15-46); BILIRUBIN,INDIRECT 0.7 mg/dl (0-1.1); BILIRUBIN,TOTAL 0.7 mg/dl (0.2-1.3); BLOOD UREA NITROGEN 8 mg/dl (7-20); CALCIUM 8.5 mg/dl (8.4-10.2); CARBON DIOXIDE 26 mmol/L (21-31); CHLORIDE 104 mmol/L (97-110); CREATININE 0.65 mg/dl (0.61-1.24); GLUCOSE 90 mg/dl (70-220); POTASSIUM 3.3 mmol/L (3.5-5.1); SODIUM 138 mmol/L (135-144); TOTAL PROTEIN 6.6 g/dl (6.1-8.1)
[2017-12-16 07:21] LABS: MAGNESIUM 1.7 mg/dl (1.7-2.5)
[2017-12-16] MEDS: MULTIVITAMINS 10 ML, THIAMINE 100 MG, FOLIC ACID 1 MG in SOD CHLORIDE 0.9% 1,000 ML IVPB (08:30)
[2017-12-16] MEDS: CHLORDIAZEPOXIDE 25 MG CAP PO ×2 (08:32→14:59)
[2017-12-16] MEDS: LEVETIRACETAM 500 MG TAB PO (08:32)
[2017-12-16] MEDS: METOPROLOL 25 MG TAB PO (08:33)
[2017-12-16] MEDS: AMLODIPINE 5 MG TAB PO (08:33)
[2017-12-16] MEDS: LISINOPRIL 10 MG TAB PO (08:33)
[2017-12-16] MEDS ORDERED: morphine 2 MG INJ IV (09:40)
[2017-12-16] MEDS: POTASSIUM CHLORIDE (SR) 20 MEQ TAB PO (12:42)
[2017-12-16] MEDS ORDERED: CHLORDIAZEPOXIDE 25 MG CAP PO (13:00)
[2017-12-16] MEDS: morphine 2 MG INJ IV (15:45)
[2017-12-16] MEDS ORDERED: AMLODIPINE 5 MG TAB PO (21:00)
== END 2017-12-16 16:15 | disposition left against medical advice (07) | DRG 894 ==
LOC: 6WM 02:12
PROVIDERS: Internal Medicine
DX: F10.239 Alcohol dependence with withdrawal, unspecified (principal); G40.89 Other seizures; I47.2 Ventricular tachycardia; I10 Essential (primary) hypertension; Z87.891 Personal history of nicotine dependence; F10.229 Alcohol dependence with intoxication, unspecified; G89.29 Other chronic pain; M54.6 Pain in thoracic spine; M54.5 Low back pain; F41.9 Anxiety disorder, unspecified; F41.0 Panic disorder [episodic paroxysmal anxiety]
CPT/HCPCS: 80053; 80307; 83735; 84100; 85025; 92610; 97161

== ENCOUNTER 2017-12-20 23:11 | Emergency (ER) | payer SELFPAY, OTHER | END 2017-12-21 01:30 | disposition left against medical advice (07) | LOC: E/R 23:11 | DX: Z53.21 Procedure and treatment not carried out due to patient leaving prior to being seen by health care provider (principal) ==

== ENCOUNTER 2017-12-21 07:38 | Emergency (ER) | payer OTHER ==
[2017-12-21] MEDS: LORAZEPAM 2 MG INJ IM (08:35)
== END 2017-12-21 11:29 | disposition home or self-care (01) ==
LOC: E/R 07:38
DX: G40.909 Epilepsy, unspecified, not intractable, without status epilepticus (principal); S09.90XA Unspecified injury of head, initial encounter; I10 Essential (primary) hypertension; F17.210 Nicotine dependence, cigarettes, uncomplicated; W01.198A Fall on same level from slipping, tripping and stumbling with subsequent striking against other object, initial encounter; Y92.9 Unspecified place or not applicable
CPT/HCPCS: 70450; 70486; 96372; 99285-25

== ENCOUNTER 2018-01-09 01:23 | Emergency (ER) | payer OTHER | END 2018-01-09 02:33 | disposition home or self-care (01) | LOC: FTE 01:23 | DX: Z76.0 Encounter for issue of repeat prescription (principal); I10 Essential (primary) hypertension | CPT/HCPCS: 99281; Z7502 ==

== ENCOUNTER 2018-09-02 15:41 | Emergency (ER) | payer OTHER ==
[2018-09-02] MEDS: ACETAMINOPHEN 325 MG TAB PO (16:32)
== END 2018-09-02 18:30 | disposition home or self-care (01) ==
LOC: E/R 15:41
DX: S06.0X0A Concussion without loss of consciousness, initial encounter (principal); F10.920 Alcohol use, unspecified with intoxication, uncomplicated; I10 Essential (primary) hypertension; F17.210 Nicotine dependence, cigarettes, uncomplicated; W18.39XA Other fall on same level, initial encounter; Y92.9 Unspecified place or not applicable
CPT/HCPCS: 70450; 72125; 73130-50; 99284-25

== ENCOUNTER 2018-11-05 14:18 | Inpatient (IN) | payer OTHER ==
[2018-11-05] MEDS: KETOROLAC 30 MG INJ IV (15:17)
[2018-11-05 15:25] LABS: ADD MAN DIFF? NO
[2018-11-05] MEDS: CLINDAMYCIN 900 MG/D5W (PMX) 50 ML IVPB ×2 (15:30→23:33)
[2018-11-05 15:32] LABS: BASOPHILS % 0.4 % (0.0-2.0); EOSINOPHILS # 0.1 10^3/ul (0.0-0.5); EOSINOPHILS % 1.2 % (0.0-7.0); HEMATOCRIT 33.7 % (42.0-52.0); LYMPHOCYTES # 1.3 10^3/ul (0.8-2.9); LYMPHOCYTES % 15.6 % (15.0-51.0); MEAN CORPUSCULAR HEMOGLOBIN 31.2 pg (29.0-33.0); MEAN CORPUSCULAR HGB CONC 32.6 g/dl (32.0-37.0); MEAN CORPUSCULAR VOLUME 95.5 fl (82.0-101.0); MEAN PLATELET VOLUME 9.5 fl (7.4-10.4); MONOCYTE # 0.9 10^3/ul (0.3-0.9); MONOCYTES % 11.5 % (0.0-11.0); NEUTROPHIL # 5.8 10^3/ul (1.6-7.5); NEUTROPHILS % 71.1 % (39.0-77.0); PLATELET COUNT 166 10^3/UL (140-415); RED BLOOD COUNT 3.53 10^6/ul (4.70-6.10); RED CELL DISTRIBUTION WIDTH 12.4 % (11.5-14.5)
[2018-11-05 15:32] LABS: WHITE BLOOD COUNT 8.2 10^3/ul (4.8-10.8)
[2018-11-05 15:51] LABS: PROTIME 12.3 Sec (11.9-14.9)
[2018-11-05 15:52] LABS: PARTIAL THROMBOPLASTIN TIME 27.5 Sec (23.0-35.0)
[2018-11-05 15:53] LABS: ANION GAP 7 (5-13); BLOOD UREA NITROGEN 17 mg/dl (7-20); C-REACTIVE PROTEIN 6.7 mg/dl (0.0-0.9); CALCIUM 8.9 mg/dl (8.4-10.2); CARBON DIOXIDE 32 mmol/L (21-31); CHLORIDE 101 mmol/L (97-110); Estimated GFR > 60 mL/min (>60); GLUCOSE 93 mg/dl (70-220); POTASSIUM 3.4 mmol/L (3.5-5.1); SODIUM 140 mmol/L (135-144)
[2018-11-05 16:48] LABS: ERYTHROCYTE SEDIMENTATION RATE 48 mm/Hr (0-20)
[2018-11-05] MEDS ORDERED: ONDANSETRON 4 MG INJ IV ×2 (18:30→19:00)
[2018-11-05] MEDS ORDERED: ACETAMINOPHEN 325 MG TAB PO ×2 (18:30→19:00)
[2018-11-05] MEDS ORDERED: DOCUSATE SODIUM 100 MG CAP PO (19:00)
[2018-11-05] MEDS ORDERED: NACL 0.9% 3 ML SYG IV (19:00)
[2018-11-05] MEDS ORDERED: MAGNESIUM HYDROXIDE 30ML CUP PO (19:00)
[2018-11-05] MEDS ORDERED: ALBUTEROL/IPRATROPIUM (NEB) 3 ML AMP HHN (19:00)
[2018-11-05] MEDS ORDERED: NITROGLYCERIN (SL) 0.4 MG TAB SL (19:00)
[2018-11-05] MEDS ORDERED: VANCOMYCIN IV PER PHARMACY XX (19:00)
[2018-11-05 19:39] LABS: ETHANOL < 10.0 mg/dl (0-0)
[2018-11-05] MEDS: SOD CHLORIDE 0.45% 1,000 ML IV (19:54)
[2018-11-05 20:29] LABS: LACTIC ACID 2.6 mmol/L (0.5-2.0)
[2018-11-05] MEDS: morphine 2 MG INJ IV (21:44)
[2018-11-05 23:18] LABS: LACTIC ACID 0.7 mmol/L (0.5-2.0)
[2018-11-06] MEDS: VANCOMYCIN HCL 2 GM in SOD CHLORIDE 0.9% 500 ML IVPB (00:27)
[2018-11-06 05:28] LABS: ADD MAN DIFF? NO
[2018-11-06 05:31] LABS: BASOPHILS % 0.3 % (0.0-2.0); EOSINOPHILS # 0.2 10^3/ul (0.0-0.5); EOSINOPHILS % 2.5 % (0.0-7.0); HEMOGLOBIN 10.4 g/dl (14.0-18.0); LYMPHOCYTES # 1.5 10^3/ul (0.8-2.9); LYMPHOCYTES % 24.1 % (15.0-51.0); MEAN CORPUSCULAR HEMOGLOBIN 31.4 pg (29.0-33.0); MEAN CORPUSCULAR HGB CONC 33.5 g/dl (32.0-37.0); MEAN CORPUSCULAR VOLUME 93.7 fl (82.0-101.0); MEAN PLATELET VOLUME 9.8 fl (7.4-10.4); MONOCYTE # 0.7 10^3/ul (0.3-0.9); NEUTROPHIL # 3.7 10^3/ul (1.6-7.5); NEUTROPHILS % 60.9 % (39.0-77.0); PLATELET COUNT 152 10^3/UL (140-415); RED BLOOD COUNT 3.31 10^6/ul (4.70-6.10)
[2018-11-06] MEDS: CLINDAMYCIN 900 MG/D5W (PMX) 50 ML IVPB ×3 (06:29→22:00)
[2018-11-06 06:33] LABS: ANION GAP 7 (5-13); BLOOD UREA NITROGEN 10 mg/dl (7-20); CALCIUM 8.4 mg/dl (8.4-10.2); CARBON DIOXIDE 28 mmol/L (21-31); CHLORIDE 105 mmol/L (97-110); CREATININE 0.52 mg/dl (0.61-1.24); Estimated GFR > 60 mL/min (>60); GLUCOSE 100 mg/dl (70-220); MAGNESIUM 1.9 mg/dl (1.7-2.5); PHOSPHORUS 3.5 mg/dl (2.5-4.9); POTASSIUM 3.1 mmol/L (3.5-5.1); SODIUM 140 mmol/L (135-144)
[2018-11-06 06:40] LABS: CHOLESTEROL 96 mg/dl (100-200)
[2018-11-06 06:40] LABS: CHOL/HDL RATIO 2.5 RATIO; HDL CHOLESTEROL 38 mg/dl (28-71); LDL CHOLESTEROL,CALCULATED 50 mg/dl; TRIGLYCERIDES 40 mg/dl (0-149)
[2018-11-06] MEDS: SOD CHLORIDE 0.45% 1,000 ML IV ×2 (08:06→19:11)
[2018-11-06 08:17] LABS: THYROID STIMULATING HORMONE 0.194 MIU/L (0.465-4.680)
[2018-11-06] MEDS: morphine 2 MG INJ IV ×4 (08:18→23:44)
[2018-11-06] MEDS: VANCOMYCIN 1.5 GM/NS 250 ML 250 ML IVPB (08:21)
[2018-11-06 08:35] LABS: HEMOGLOBIN A1C 5.6 % (0-5.9)
[2018-11-06] MEDS: POTASSIUM CHLORIDE (SR) 20 MEQ TAB PO (12:52)
[2018-11-06] MEDS: HYDROCODONE/APAP (5/325) TAB PO ×2 (12:52→21:40)
[2018-11-07] MEDS: morphine 2 MG INJ IV ×4 (04:57→23:45)
[2018-11-07] MEDS: CLINDAMYCIN 900 MG/D5W (PMX) 50 ML IVPB ×3 (05:31→21:12)
[2018-11-07 06:19] LABS: ADD MAN DIFF? NO
[2018-11-07 06:22] LABS: WHITE BLOOD COUNT 7.4 10^3/ul (4.8-10.8)
[2018-11-07 06:22] LABS: BASOPHILS % 0.3 % (0.0-2.0); EOSINOPHILS # 0.1 10^3/ul (0.0-0.5); EOSINOPHILS % 1.6 % (0.0-7.0); HEMOGLOBIN 10.8 g/dl (14.0-18.0); LYMPHOCYTES # 1.4 10^3/ul (0.8-2.9); LYMPHOCYTES % 18.7 % (15.0-51.0); MEAN CORPUSCULAR HEMOGLOBIN 31.3 pg (29.0-33.0); MEAN CORPUSCULAR HGB CONC 33.8 g/dl (32.0-37.0); MEAN CORPUSCULAR VOLUME 92.8 fl (82.0-101.0); MONOCYTE # 0.8 10^3/ul (0.3-0.9); MONOCYTES % 10.4 % (0.0-11.0); NEUTROPHIL # 5.1 10^3/ul (1.6-7.5); NEUTROPHILS % 68.7 % (39.0-77.0); PLATELET COUNT 168 10^3/UL (140-415); RED BLOOD COUNT 3.45 10^6/ul (4.70-6.10); RED CELL DISTRIBUTION WIDTH 11.9 % (11.5-14.5)
[2018-11-07 06:55] LABS: ANION GAP 5 (5-13); BLOOD UREA NITROGEN 10 mg/dl (7-20); CALCIUM 8.6 mg/dl (8.4-10.2); CARBON DIOXIDE 30 mmol/L (21-31); CHLORIDE 102 mmol/L (97-110); CREATININE 0.59 mg/dl (0.61-1.24); Estimated GFR > 60 mL/min (>60); GLUCOSE 102 mg/dl (70-220); SODIUM 137 mmol/L (135-144)
[2018-11-07 07:04] LABS: POTASSIUM 3.3 mmol/L (3.5-5.1)
[2018-11-07 07:49] LABS: FREE T4 (FREE THYROXINE) 0.93 ng/dl (0.64-1.79)
[2018-11-07] MEDS: hydrALAzine 20 MG INJ IV (08:14)
[2018-11-07] MEDS: SOD CHLORIDE 0.45% 1,000 ML IV (10:18)
[2018-11-07] MEDS: HYDROCODONE/APAP (5/325) TAB PO ×3 (11:09→22:11)
[2018-11-07] MEDS: POTASSIUM CHLORIDE (SR) 20 MEQ TAB PO (17:21)
[2018-11-07] MEDS: LORAZEPAM 2 MG INJ IV (21:12)
[2018-11-07] MEDS ORDERED: HYDROCODONE/APAP (5/325) TAB PO (21:30)
[2018-11-08] MEDS: SOD CHLORIDE 0.45% 1,000 ML IV ×2 (00:06→04:01)
[2018-11-08] MEDS: morphine 2 MG INJ IV ×4 (04:25→20:23)
[2018-11-08] MEDS: CLINDAMYCIN 900 MG/D5W (PMX) 50 ML IVPB ×3 (05:46→21:23)
[2018-11-08 05:58] LABS: ADD MAN DIFF? NO
[2018-11-08] MEDS: HYDROCODONE/APAP (5/325) TAB PO (06:00)
[2018-11-08 06:08] LABS: WHITE BLOOD COUNT 5.9 10^3/ul (4.8-10.8)
[2018-11-08 06:08] LABS: BASOPHILS % 0.5 % (0.0-2.0); EOSINOPHILS # 0.2 10^3/ul (0.0-0.5); EOSINOPHILS % 2.9 % (0.0-7.0); HEMATOCRIT 31.6 % (42.0-52.0); HEMOGLOBIN 10.9 g/dl (14.0-18.0); LYMPHOCYTES # 1.4 10^3/ul (0.8-2.9); LYMPHOCYTES % 24.2 % (15.0-51.0); MEAN CORPUSCULAR HEMOGLOBIN 31.4 pg (29.0-33.0); MEAN CORPUSCULAR HGB CONC 34.5 g/dl (32.0-37.0); MEAN CORPUSCULAR VOLUME 91.1 fl (82.0-101.0); MEAN PLATELET VOLUME 9.6 fl (7.4-10.4); MONOCYTE # 0.6 10^3/ul (0.3-0.9); MONOCYTES % 10.4 % (0.0-11.0); NEUTROPHIL # 3.6 10^3/ul (1.6-7.5); NEUTROPHILS % 61.7 % (39.0-77.0); PLATELET COUNT 188 10^3/UL (140-415); RED BLOOD COUNT 3.47 10^6/ul (4.70-6.10); RED CELL DISTRIBUTION WIDTH 11.8 % (11.5-14.5)
[2018-11-08 06:40] LABS: ANION GAP 7 (5-13); BLOOD UREA NITROGEN 13 mg/dl (7-20); CALCIUM 8.7 mg/dl (8.4-10.2); CARBON DIOXIDE 28 mmol/L (21-31); CHLORIDE 104 mmol/L (97-110); CREATININE 0.65 mg/dl (0.61-1.24); Estimated GFR > 60 mL/min (>60); GLUCOSE 98 mg/dl (70-220); POTASSIUM 3.5 mmol/L (3.5-5.1); SODIUM 139 mmol/L (135-144)
[2018-11-08] MEDS: LORAZEPAM 2 MG INJ IV ×2 (09:49→21:29)
[2018-11-08] MEDS ORDERED: FENTAnyl 50 MCG/ML VIAL (12:20)
[2018-11-08] MEDS ORDERED: LIDOCAINE 2% (SDV) 5 ML INJ (12:20)
[2018-11-08] MEDS ORDERED: PROPOFOL 40 ML (12:20)
[2018-11-08] MEDS ORDERED: MIDAZOLAM 1 MG/ML 2 ML INJ (12:20)
[2018-11-08] MEDS ORDERED: LIDOCAINE 1% (MPF) 30 ML INJ (12:22)
[2018-11-08] MEDS ORDERED: BUPIVACAINE 0.5% (SDV) 30 ML INJ (12:22)
[2018-11-08] MEDS: POLYMYXIN/BACITRACIN 1L IRRIG IRR (12:30)
[2018-11-08] MEDS ORDERED: HYDROmorphONE 1 MG/5 ML IV SYRINGE IV (12:30)
[2018-11-08] MEDS: BUPIVACAINE 0.5% 30 ML VIAL INJ (12:30)
[2018-11-08] MEDS ORDERED: EPHEDrine 25 MG/5 ML SYG IV (12:30)
[2018-11-08] MEDS: LIDOCAINE 1% (MPF) 30 ML INJ INJ (12:30)
[2018-11-08] MEDS ORDERED: ONDANSETRON 4 MG INJ IV (12:30)
[2018-11-08] MEDS ORDERED: LABETALOL HCL 20MG INJ IV (12:30)
[2018-11-08] MEDS ORDERED: morphine 2 MG INJ IV ×2 (12:30)
[2018-11-08] MEDS ORDERED: ALBUTEROL 0.083% (NEB) 2.5 MG/3 ML AMP HHN (12:30)
[2018-11-08] MEDS ORDERED: DIPHENHYDRAMINE 50 MG INJ IV (12:30)
[2018-11-08] MEDS ORDERED: MEPERIDINE 25 MG INJ IV (12:30)
[2018-11-08] MEDS: HYDROmorphONE 1 MG/5 ML IV SYRINGE IV ×2 (13:14→13:26)
[2018-11-08] MEDS: FENTAnyl 50 MCG/ML VIAL IV ×2 (13:35→13:47)
[2018-11-08] MEDS: hydrALAzine 20 MG INJ IV (13:44)
[2018-11-08] MEDS: HYDROCODONE/APAP (10/325) TAB PO (17:25)
[2018-11-09] MEDS: morphine 2 MG INJ IV ×5 (01:14→20:48)
[2018-11-09] MEDS: LORAZEPAM 2 MG INJ IV ×3 (04:46→21:35)
[2018-11-09 05:38] LABS: HAAIG REFLEX REFLEX FILED
[2018-11-09 05:39] LABS: ADD MAN DIFF? NO
[2018-11-09 05:42] LABS: WHITE BLOOD COUNT 6.8 10^3/ul (4.8-10.8)
[2018-11-09 05:42] LABS: BASOPHILS % 0.3 % (0.0-2.0); EOSINOPHILS # 0.1 10^3/ul (0.0-0.5); EOSINOPHILS % 1.8 % (0.0-7.0); HEMATOCRIT 32.9 % (42.0-52.0); HEMOGLOBIN 11.4 g/dl (14.0-18.0); LYMPHOCYTES # 1.4 10^3/ul (0.8-2.9); LYMPHOCYTES % 20.5 % (15.0-51.0); MEAN CORPUSCULAR HEMOGLOBIN 31.3 pg (29.0-33.0); MEAN CORPUSCULAR HGB CONC 34.7 g/dl (32.0-37.0); MEAN CORPUSCULAR VOLUME 90.4 fl (82.0-101.0); MEAN PLATELET VOLUME 9.2 fl (7.4-10.4); MONOCYTE # 0.8 10^3/ul (0.3-0.9); MONOCYTES % 11.8 % (0.0-11.0); NEUTROPHIL # 4.4 10^3/ul (1.6-7.5); NEUTROPHILS % 65.3 % (39.0-77.0); PLATELET COUNT 213 10^3/UL (140-415); RED BLOOD COUNT 3.64 10^6/ul (4.70-6.10); RED CELL DISTRIBUTION WIDTH 11.8 % (11.5-14.5)
[2018-11-09 06:14] LABS: ANION GAP 7 (5-13); BLOOD UREA NITROGEN 9 mg/dl (7-20); CALCIUM 8.8 mg/dl (8.4-10.2); CARBON DIOXIDE 29 mmol/L (21-31); CHLORIDE 103 mmol/L (97-110); CREATININE 0.66 mg/dl (0.61-1.24); Estimated GFR > 60 mL/min (>60); GLUCOSE 108 mg/dl (70-220); POTASSIUM 3.7 mmol/L (3.5-5.1); SODIUM 139 mmol/L (135-144)
[2018-11-09 06:21] LABS: FREE T4 (FREE THYROXINE) 1.04 ng/dl (0.64-1.79)
[2018-11-09 06:37] LABS: HEPATITIS B SURFACE ANTIGEN NEGATIVE (NEGATIVE)
[2018-11-09 06:54] LABS: HEPATITIS B CORE ANTIBODY REACTIVE (NEGATIVE)
[2018-11-09 07:00] LABS: HEPATITIS C VIRAL ANTIBODY REACTIVE (NEGATIVE)
[2018-11-09] MEDS: CLINDAMYCIN 900 MG/D5W (PMX) 50 ML IVPB ×3 (07:00→21:35)
[2018-11-09] MEDS: DAKINS 0.0125%(1/40) 473 ML SOLUTION TP (09:30)
[2018-11-09] MEDS: AMLODIPINE 10 MG TAB PO (16:44)
[2018-11-09] MEDS: FOLIC ACID 1 MG TAB PO (16:44)
[2018-11-09] MEDS: HYDROCODONE/APAP (10/325) TAB PO (19:10)
[2018-11-09] MEDS: LACTOBACILLUS RHAMNOSUS CAP PO (20:43)
[2018-11-09] MEDS: LEVETIRACETAM 500 MG TAB PO (20:44)
[2018-11-09] MEDS: ATORVASTATIN 80 MG TAB PO (20:46)
[2018-11-10] MEDS: HYDROCODONE/APAP (10/325) TAB PO ×3 (00:17→14:30)
[2018-11-10] MEDS: morphine 2 MG INJ IV ×3 (02:05→12:00)
[2018-11-10] MEDS: CLINDAMYCIN 900 MG/D5W (PMX) 50 ML IVPB (06:01)
[2018-11-10 07:20] LABS: ADD MAN DIFF? NO
[2018-11-10 07:25] LABS: WHITE BLOOD COUNT 5.7 10^3/ul (4.8-10.8)
[2018-11-10 07:25] LABS: BASOPHILS % 0.5 % (0.0-2.0); EOSINOPHILS # 0.2 10^3/ul (0.0-0.5); EOSINOPHILS % 3.9 % (0.0-7.0); HEMATOCRIT 35.5 % (42.0-52.0); HEMOGLOBIN 11.7 g/dl (14.0-18.0); LYMPHOCYTES # 1.8 10^3/ul (0.8-2.9); LYMPHOCYTES % 31.6 % (15.0-51.0); MEAN CORPUSCULAR HEMOGLOBIN 30.6 pg (29.0-33.0); MEAN CORPUSCULAR VOLUME 92.9 fl (82.0-101.0); MEAN PLATELET VOLUME 9.4 fl (7.4-10.4); MONOCYTE # 0.6 10^3/ul (0.3-0.9); MONOCYTES % 10.6 % (0.0-11.0); NEUTROPHILS % 53.2 % (39.0-77.0); PLATELET COUNT 232 10^3/UL (140-415); RED BLOOD COUNT 3.82 10^6/ul (4.70-6.10)
[2018-11-10 07:49] LABS: ANION GAP 7 (5-13); BLOOD UREA NITROGEN 13 mg/dl (7-20); CARBON DIOXIDE 29 mmol/L (21-31); CHLORIDE 102 mmol/L (97-110); CREATININE 0.64 mg/dl (0.61-1.24); Estimated GFR > 60 mL/min (>60); GLUCOSE 101 mg/dl (70-220); POTASSIUM 3.6 mmol/L (3.5-5.1); SODIUM 138 mmol/L (135-144)
[2018-11-10] MEDS: LACTOBACILLUS RHAMNOSUS CAP PO (09:40)
[2018-11-10] MEDS: FOLIC ACID 1 MG TAB PO (09:41)
[2018-11-10] MEDS: AMLODIPINE 10 MG TAB PO (09:41)
[2018-11-10] MEDS: THIAMINE 100 MG TAB PO (09:41)
[2018-11-10] MEDS: LEVETIRACETAM 500 MG TAB PO (09:41)
[2018-11-10] MEDS: ASPIRIN (EC) 81 MG TAB PO (09:41)
[2018-11-10] MEDS: LORAZEPAM 2 MG INJ IV (09:42)
[2018-11-10] MEDS: DAKINS 0.0125%(1/40) 473 ML SOLUTION TP (09:51)
[2018-11-10] MEDS: ENOXAPARIN 40 MG/0.4 ML SYG SC (10:04)
[2018-11-10] MEDS: CLINDAMYCIN 150 MG CAP PO (14:29)
== END 2018-11-10 18:00 | disposition home health service (06) | DRG 581 ==
LOC: E/R 14:18 → 2NE 21:20
PROVIDERS: Hospitalist
PROC: 0J9P0ZZ Drainage of Left Lower Leg Subcutaneous Tissue and Fascia, Open Approach (ICD-10-PCS; principal; 2018-11-08 11:30)
DX: L02.416 Cutaneous abscess of left lower limb (principal); L03.116 Cellulitis of left lower limb; I10 Essential (primary) hypertension; D64.9 Anemia, unspecified; F41.9 Anxiety disorder, unspecified; F32.9 Major depressive disorder, single episode, unspecified; G40.909 Epilepsy, unspecified, not intractable, without status epilepticus; K75.9 Inflammatory liver disease, unspecified; E05.90 Thyrotoxicosis, unspecified without thyrotoxic crisis or storm; G89.29 Other chronic pain; M54.5 Low back pain; F10.21 Alcohol dependence, in remission; T63.301A Toxic effect of unspecified spider venom, accidental (unintentional), initial encounter; Z87.891 Personal history of nicotine dependence
CPT/HCPCS: 71045; 73610; 73721; 80048; 80061; 80307; 83036; 83605; 83735; 84100; 84439; 84443; 84480; 85025; 85610; 85651; 85730; 86140; 86704; 86709; 86803; 87040-91; 87070; 87075; 87102; 87116; 87340; 92610; 93922; 93970; 96374; 96375; 97110; 97116; 97162; 97530; 99285-25

== ENCOUNTER 2018-11-12 00:46 | Inpatient (IN) | payer OTHER ==
[2018-11-12] MEDS: morphine 4 MG/ML VIAL IV (04:18)
[2018-11-12] MEDS: SODIUM CHLORIDE 0.9% 1L BAG IV* (04:19)
[2018-11-12 05:02] LABS: ADD MAN DIFF? NO
[2018-11-12 05:06] LABS: WHITE BLOOD COUNT 9.3 10^3/ul (4.8-10.8)
[2018-11-12 05:07] LABS: BASOPHIL # 0.1 10^3/ul (0.0-0.1); BASOPHILS % 0.5 % (0.0-2.0); EOSINOPHILS # 0.4 10^3/ul (0.0-0.5); HEMATOCRIT 36.4 % (42.0-52.0); HEMOGLOBIN 11.9 g/dl (14.0-18.0); LYMPHOCYTES # 2.2 10^3/ul (0.8-2.9); LYMPHOCYTES % 23.8 % (15.0-51.0); MEAN CORPUSCULAR HEMOGLOBIN 31.1 pg (29.0-33.0); MEAN CORPUSCULAR HGB CONC 32.7 g/dl (32.0-37.0); MEAN PLATELET VOLUME 8.8 fl (7.4-10.4); MONOCYTE # 0.8 10^3/ul (0.3-0.9); MONOCYTES % 8.3 % (0.0-11.0); NEUTROPHIL # 5.8 10^3/ul (1.6-7.5); NEUTROPHILS % 62.9 % (39.0-77.0); PLATELET COUNT 261 10^3/UL (140-415); RED BLOOD COUNT 3.83 10^6/ul (4.70-6.10); RED CELL DISTRIBUTION WIDTH 12.4 % (11.5-14.5)
[2018-11-12] MEDS: CEFEPIME 2GM/50 ML (PMX) 50 ML IVPB (05:13)
[2018-11-12 05:24] LABS: ALANINE AMINOTRANSFERASE 17 IU/L (13-69); ALBUMIN 4.3 g/dl (3.3-4.9); ALBUMIN/GLOBULIN RATIO 1.19; ALKALINE PHOSPHATASE 61 IU/L (42-121); ANION GAP 6 (5-13); ASPARTATE AMINO TRANSFERASE 20 IU/L (15-46); BILIRUBIN,INDIRECT 0.3 mg/dl (0-1.1); BILIRUBIN,TOTAL 0.3 mg/dl (0.2-1.3); BLOOD UREA NITROGEN 21 mg/dl (7-20); CALCIUM 9.3 mg/dl (8.4-10.2); CARBON DIOXIDE 32 mmol/L (21-31); CHLORIDE 102 mmol/L (97-110); CREATININE 0.72 mg/dl (0.61-1.24); Estimated GFR > 60 mL/min (>60); GLUCOSE 73 mg/dl (70-220); POTASSIUM 3.9 mmol/L (3.5-5.1); SODIUM 140 mmol/L (135-144); TOTAL PROTEIN 7.9 g/dl (6.1-8.1)
[2018-11-12 05:29] LABS: INR 0.95; PARTIAL THROMBOPLASTIN TIME 26.9 Sec (23.0-35.0); PROTIME 12.8 Sec (11.9-14.9)
[2018-11-12] MEDS: VANCOMYCIN 1 GM (PMX) 250 ML IVPB (05:30)
[2018-11-12] MEDS ORDERED: ONDANSETRON 4 MG INJ IV ×2 (06:00)
[2018-11-12] MEDS ORDERED: BISACODYL (EC) 5 MG TAB PO (06:00)
[2018-11-12] MEDS ORDERED: DOCUSATE SODIUM 100 MG CAP PO (06:00)
[2018-11-12] MEDS ORDERED: NACL 0.9% 3 ML SYG IV (06:00)
[2018-11-12] MEDS ORDERED: ACETAMINOPHEN 325 MG TAB PO ×2 (06:00)
[2018-11-12] MEDS ORDERED: morphine 2 MG INJ IV (06:00)
[2018-11-12] MEDS ORDERED: VANCOMYCIN IV PER PHARMACY XX (06:30)
[2018-11-12] MEDS: SOD CHLORIDE 0.9% 1,000 ML IV ×2 (06:50→20:14)
[2018-11-12 07:38] LABS: C-REACTIVE PROTEIN 1.9 mg/dl (0.0-0.9)
[2018-11-12 07:44] LABS: LACTIC ACID 0.9 mmol/L (0.5-2.0)
[2018-11-12] MEDS: IOHEXOL 300MG/ML 150 ML BTL (07:47)
[2018-11-12] MEDS: SOD CHLORIDE 0.9% 100 ML (07:47)
[2018-11-12] MEDS: LEVOFLOXACIN 750MG/D5W (PMX) 150 ML IVPB (07:59)
[2018-11-12 08:23] LABS: ERYTHROCYTE SEDIMENTATION RATE 45 mm/Hr (0-20)
[2018-11-12] MEDS: morphine 2 MG INJ IV ×3 (09:06→17:49)
[2018-11-12] MEDS: LIDOCAINE 1% (MDV) 20 ML INJ SC (11:01)
[2018-11-12] MEDS ORDERED: PIPER-TAZO 3.375 GM IV (PMX) 100 ML IVPB (12:00)
[2018-11-12] MEDS: VANCOMYCIN 1.5 GM/NS 250 ML 250 ML IVPB (12:04)
[2018-11-12] MEDS: CLINDAMYCIN 900 MG/D5W (PMX) 50 ML IVPB ×2 (15:10→21:00)
[2018-11-12] MEDS: ASPIRIN (EC) 81 MG TAB PO (17:44)
[2018-11-12] MEDS: AMLODIPINE 10 MG TAB PO (17:44)
[2018-11-12] MEDS: FOLIC ACID 1 MG TAB PO (17:44)
[2018-11-12] MEDS: LACTOBACILLUS RHAMNOSUS CAP PO (20:47)
[2018-11-12] MEDS: ENALAPRIL 10 MG TAB PO (20:48)
[2018-11-12] MEDS: ATORVASTATIN 80 MG TAB PO (20:48)
[2018-11-12] MEDS: LEVETIRACETAM 500 MG TAB PO (20:48)
[2018-11-12] MEDS: LORAZEPAM 2 MG INJ IV (21:55)
[2018-11-13] MEDS: SOD CHLORIDE 0.9% 1,000 ML IV ×2 (01:18→10:32)
[2018-11-13] MEDS: morphine 2 MG INJ IV ×3 (05:02→20:21)
[2018-11-13 05:27] LABS: ADD MAN DIFF? NO
[2018-11-13] MEDS: CLINDAMYCIN 900 MG/D5W (PMX) 50 ML IVPB ×3 (05:28→21:41)
[2018-11-13 05:38] LABS: BASOPHILS % 0.7 % (0.0-2.0); EOSINOPHILS # 0.3 10^3/ul (0.0-0.5); EOSINOPHILS % 6.2 % (0.0-7.0); HEMATOCRIT 30.7 % (42.0-52.0); LYMPHOCYTES # 1.8 10^3/ul (0.8-2.9); MEAN CORPUSCULAR HEMOGLOBIN 31.3 pg (29.0-33.0); MEAN CORPUSCULAR HGB CONC 32.6 g/dl (32.0-37.0); MEAN CORPUSCULAR VOLUME 95.9 fl (82.0-101.0); MEAN PLATELET VOLUME 9.2 fl (7.4-10.4); MONOCYTE # 0.5 10^3/ul (0.3-0.9); MONOCYTES % 11.7 % (0.0-11.0); NEUTROPHIL # 1.9 10^3/ul (1.6-7.5); PLATELET COUNT 219 10^3/UL (140-415)
[2018-11-13 05:38] LABS: WHITE BLOOD COUNT 4.5 10^3/ul (4.8-10.8)
[2018-11-13 05:49] LABS: ALANINE AMINOTRANSFERASE 18 IU/L (13-69); ALBUMIN 2.9 g/dl (3.3-4.9); ALBUMIN/GLOBULIN RATIO 1.03; ALKALINE PHOSPHATASE 47 IU/L (42-121); ANION GAP 5 (5-13); ASPARTATE AMINO TRANSFERASE 15 IU/L (15-46); BILIRUBIN,INDIRECT 0.3 mg/dl (0-1.1); BILIRUBIN,TOTAL 0.3 mg/dl (0.2-1.3); BLOOD UREA NITROGEN 11 mg/dl (7-20); CALCIUM 8.4 mg/dl (8.4-10.2); CARBON DIOXIDE 29 mmol/L (21-31); CHLORIDE 103 mmol/L (97-110); CREATININE 0.59 mg/dl (0.61-1.24); Estimated GFR > 60 mL/min (>60); GLUCOSE 95 mg/dl (70-220); POTASSIUM 3.6 mmol/L (3.5-5.1); SODIUM 137 mmol/L (135-144); TOTAL PROTEIN 5.7 g/dl (6.1-8.1)
[2018-11-13] MEDS: DAKINS 0.0125%(1/40) 473 ML SOLUTION TP (09:00)
[2018-11-13] MEDS: FOLIC ACID 1 MG TAB PO (09:00)
[2018-11-13] MEDS: THIAMINE 100 MG TAB PO (09:00)
[2018-11-13] MEDS: AMLODIPINE 10 MG TAB PO (09:01)
[2018-11-13] MEDS: ENALAPRIL 10 MG TAB PO (09:01)
[2018-11-13] MEDS: ASPIRIN (EC) 81 MG TAB PO (09:01)
[2018-11-13] MEDS: LEVETIRACETAM 500 MG TAB PO ×2 (09:01→20:20)
[2018-11-13] MEDS: LACTOBACILLUS RHAMNOSUS CAP PO ×2 (09:01→20:20)
[2018-11-13] MEDS: LORAZEPAM 2 MG INJ IV ×3 (11:14→21:48)
[2018-11-13] MEDS: HYDROCODONE/APAP (5/325) TAB PO (15:16)
[2018-11-13] MEDS: FAMOTIDINE 20 MG TAB PO (16:32)
[2018-11-13] MEDS: NAPROXEN 500 MG TAB PO ×2 (17:26→21:41)
[2018-11-13] MEDS: ATORVASTATIN 80 MG TAB PO (20:19)
[2018-11-13] MEDS: HYDROCODONE/APAP (10/325) TAB PO (23:10)
[2018-11-14] MEDS: morphine 2 MG INJ IV ×5 (00:59→23:04)
[2018-11-14] MEDS: LORAZEPAM 2 MG INJ IV ×4 (02:12→20:05)
[2018-11-14] MEDS: HYDROCODONE/APAP (10/325) TAB PO ×2 (05:02→20:52)
[2018-11-14] MEDS: CLINDAMYCIN 900 MG/D5W (PMX) 50 ML IVPB ×3 (05:31→22:47)
[2018-11-14] MEDS: LEVETIRACETAM 500 MG TAB PO ×2 (09:02→20:48)
[2018-11-14] MEDS: NAPROXEN 500 MG TAB PO ×2 (09:02→20:49)
[2018-11-14] MEDS: THIAMINE 100 MG TAB PO (09:02)
[2018-11-14] MEDS: LACTOBACILLUS RHAMNOSUS CAP PO ×2 (09:02→20:49)
[2018-11-14] MEDS: FOLIC ACID 1 MG TAB PO (09:02)
[2018-11-14] MEDS: ASPIRIN (EC) 81 MG TAB PO (09:03)
[2018-11-14] MEDS: AMLODIPINE 5 MG TAB PO (09:03)
[2018-11-14] MEDS: FAMOTIDINE 20 MG TAB PO (09:03)
[2018-11-14] MEDS: ENALAPRIL 10 MG TAB PO (09:03)
[2018-11-14] MEDS: ENOXAPARIN 40 MG/0.4 ML SYG SC (09:13)
[2018-11-14] MEDS: DAKINS 0.0125%(1/40) 473 ML SOLUTION TP (09:13)
[2018-11-14] MEDS: ATORVASTATIN 80 MG TAB PO (20:49)
[2018-11-15] MEDS: morphine 2 MG INJ IV ×5 (04:25→22:08)
[2018-11-15] MEDS: CLINDAMYCIN 900 MG/D5W (PMX) 50 ML IVPB ×3 (05:26→21:06)
[2018-11-15 06:23] LABS: ADD MAN DIFF? NO
[2018-11-15 06:26] LABS: BASOPHILS % 0.6 % (0.0-2.0); EOSINOPHILS # 0.3 10^3/ul (0.0-0.5); EOSINOPHILS % 5.4 % (0.0-7.0); HEMATOCRIT 33.2 % (42.0-52.0); HEMOGLOBIN 11.3 g/dl (14.0-18.0); LYMPHOCYTES # 1.9 10^3/ul (0.8-2.9); LYMPHOCYTES % 36.3 % (15.0-51.0); MEAN CORPUSCULAR HEMOGLOBIN 31.4 pg (29.0-33.0); MEAN CORPUSCULAR VOLUME 92.2 fl (82.0-101.0); MEAN PLATELET VOLUME 9.8 fl (7.4-10.4); MONOCYTE # 0.5 10^3/ul (0.3-0.9); NEUTROPHIL # 2.5 10^3/ul (1.6-7.5); NEUTROPHILS % 48.3 % (39.0-77.0); PLATELET COUNT 241 10^3/UL (140-415); POSITIVE DIFF @See below; RED CELL DISTRIBUTION WIDTH 11.8 % (11.5-14.5)
[2018-11-15 06:26] LABS: WHITE BLOOD COUNT 5.2 10^3/ul (4.8-10.8)
[2018-11-15 06:55] LABS: ALANINE AMINOTRANSFERASE 18 IU/L (13-69); ALBUMIN 3.5 g/dl (3.3-4.9); ALBUMIN/GLOBULIN RATIO 1.02; ALKALINE PHOSPHATASE 56 IU/L (42-121); ANION GAP 3 (5-13); ASPARTATE AMINO TRANSFERASE 20 IU/L (15-46); BILIRUBIN,INDIRECT 0.4 mg/dl (0-1.1); BILIRUBIN,TOTAL 0.4 mg/dl (0.2-1.3); BLOOD UREA NITROGEN 12 mg/dl (7-20); CALCIUM 8.8 mg/dl (8.4-10.2); CARBON DIOXIDE 34 mmol/L (21-31); CHLORIDE 100 mmol/L (97-110); CREATININE 0.67 mg/dl (0.61-1.24); Estimated GFR > 60 mL/min (>60); GLUCOSE 88 mg/dl (70-220); POTASSIUM 3.8 mmol/L (3.5-5.1); SODIUM 137 mmol/L (135-144); TOTAL PROTEIN 6.9 g/dl (6.1-8.1)
[2018-11-15] MEDS: ASPIRIN (EC) 81 MG TAB PO (08:15)
[2018-11-15] MEDS: FOLIC ACID 1 MG TAB PO (08:16)
[2018-11-15] MEDS: LEVETIRACETAM 500 MG TAB PO ×2 (08:16→20:12)
[2018-11-15] MEDS: LACTOBACILLUS RHAMNOSUS CAP PO ×2 (08:16→20:13)
[2018-11-15] MEDS: ENALAPRIL 10 MG TAB PO (08:16)
[2018-11-15] MEDS: NAPROXEN 500 MG TAB PO ×2 (08:16→20:12)
[2018-11-15] MEDS: FAMOTIDINE 20 MG TAB PO (08:16)
[2018-11-15] MEDS: DAKINS 0.0125%(1/40) 473 ML SOLUTION TP (08:17)
[2018-11-15] MEDS: AMLODIPINE 5 MG TAB PO (08:17)
[2018-11-15] MEDS: THIAMINE 100 MG TAB PO (08:19)
[2018-11-15] MEDS: ENOXAPARIN 40 MG/0.4 ML SYG SC (08:20)
[2018-11-15] MEDS: LORAZEPAM 2 MG INJ IV ×3 (09:49→21:05)
[2018-11-15] MEDS: LEVOFLOXACIN 500 MG TAB PO (12:46)
[2018-11-15] MEDS: HYDROCODONE/APAP (10/325) TAB PO (19:23)
[2018-11-15] MEDS: ATORVASTATIN 80 MG TAB PO (20:13)
[2018-11-16] MEDS: LEVOFLOXACIN 500 MG TAB PO (05:15)
[2018-11-16] MEDS: CLINDAMYCIN 900 MG/D5W (PMX) 50 ML IVPB ×3 (05:15→22:49)
[2018-11-16] MEDS: morphine 2 MG INJ IV ×5 (05:16→22:49)
[2018-11-16] MEDS: LORAZEPAM 2 MG INJ IV ×4 (06:39→20:09)
[2018-11-16] MEDS: ASPIRIN (EC) 81 MG TAB PO (08:50)
[2018-11-16] MEDS: LACTOBACILLUS RHAMNOSUS CAP PO ×2 (08:50→20:09)
[2018-11-16] MEDS: AMLODIPINE 5 MG TAB PO (08:51)
[2018-11-16] MEDS: LEVETIRACETAM 500 MG TAB PO ×2 (08:51→20:09)
[2018-11-16] MEDS: FOLIC ACID 1 MG TAB PO (08:51)
[2018-11-16] MEDS: NAPROXEN 500 MG TAB PO ×2 (08:51→20:09)
[2018-11-16] MEDS: FAMOTIDINE 20 MG TAB PO (08:51)
[2018-11-16] MEDS: ENALAPRIL 10 MG TAB PO (08:51)
[2018-11-16] MEDS: ENOXAPARIN 40 MG/0.4 ML SYG SC (08:56)
[2018-11-16] MEDS: DAKINS 0.0125%(1/40) 473 ML SOLUTION TP (08:57)
[2018-11-16] MEDS: THIAMINE 100 MG TAB PO (08:59)
[2018-11-16] MEDS: HYDROCODONE/APAP (10/325) TAB PO ×2 (12:18→21:07)
[2018-11-16] MEDS: ATORVASTATIN 80 MG TAB PO (20:09)
[2018-11-17] MEDS: LORAZEPAM 2 MG INJ IV ×3 (01:25→09:42)
[2018-11-17] MEDS: morphine 2 MG INJ IV ×3 (03:22→12:49)
[2018-11-17] MEDS: CLINDAMYCIN 900 MG/D5W (PMX) 50 ML IVPB ×2 (05:27→14:27)
[2018-11-17] MEDS: LEVOFLOXACIN 500 MG TAB PO (05:29)
[2018-11-17] MEDS: NAPROXEN 500 MG TAB PO (08:16)
[2018-11-17] MEDS: FAMOTIDINE 20 MG TAB PO (08:16)
[2018-11-17] MEDS: LACTOBACILLUS RHAMNOSUS CAP PO (08:16)
[2018-11-17] MEDS: LEVETIRACETAM 500 MG TAB PO (08:16)
[2018-11-17] MEDS: ASPIRIN (EC) 81 MG TAB PO (08:16)
[2018-11-17] MEDS: FOLIC ACID 1 MG TAB PO (08:16)
[2018-11-17] MEDS: THIAMINE 100 MG TAB PO (08:16)
[2018-11-17] MEDS: ENALAPRIL 10 MG TAB PO (08:17)
[2018-11-17] MEDS: DAKINS 0.0125%(1/40) 473 ML SOLUTION TP (08:18)
[2018-11-17] MEDS: AMLODIPINE 5 MG TAB PO (08:18)
[2018-11-17] MEDS: ENOXAPARIN 40 MG/0.4 ML SYG SC (08:26)
[2018-11-17] MEDS: HYDROCODONE/APAP (10/325) TAB PO (11:49)
[2018-11-17] MEDS ORDERED: CLINDAMYCIN 300 MG CAP PO (15:30)
== END 2018-11-17 16:25 | disposition home or self-care (01) | DRG 572 ==
LOC: E/R 00:46 → MS3 05:55
PROVIDERS: Family Medicine
PROC: 0JBP0ZZ Excision of Left Lower Leg Subcutaneous Tissue and Fascia, Open Approach (ICD-10-PCS; principal; 2018-11-12)
DX: L03.116 Cellulitis of left lower limb (principal); L02.416 Cutaneous abscess of left lower limb; B19.20 Unspecified viral hepatitis C without hepatic coma; D64.9 Anemia, unspecified; F41.9 Anxiety disorder, unspecified; F32.9 Major depressive disorder, single episode, unspecified; F17.200 Nicotine dependence, unspecified, uncomplicated; F41.0 Panic disorder [episodic paroxysmal anxiety]; F10.20 Alcohol dependence, uncomplicated; G40.909 Epilepsy, unspecified, not intractable, without status epilepticus; I10 Essential (primary) hypertension; M79.605 Pain in left leg; R60.0 Localized edema; Z79.82 Long term (current) use of aspirin
CPT/HCPCS: 73700; 80053; 83605; 85025; 85610; 85651; 85730; 86140; 87040-91; 87070; 87081; 93971; 96374; 96375; 99285-25